=== PATIENT | male | born 1990 | race Native Hawaiian/Other Pacific Islander ===

== ENCOUNTER 2022-08-22 02:22 | Outpatient (CLI) | payer OTHER | END 2022-08-22 23:59 | disposition critical access hospital (66) | LOC: EMS 02:22 | DX: R56.9 Unspecified convulsions (principal); E10.649 Type 1 diabetes mellitus with hypoglycemia without coma | CPT/HCPCS: A0425; A0429 ==

== ENCOUNTER 2022-08-22 02:38 | Emergency (ER) | payer OTHER ==
--- NOTE | 2022-08-22 02:39 | ED Physician Documentation ---
PD HPI SEIZURE - Stated complaint Stated Complaint: SEIZURE - History obtained from History obtained from: Patient, Family (girlfriend) - Additional information Additional information: Patient presents by ambulance. HPI is from EMS, patient, and, later in stay when she arrives, patient's girlfriend. Patient presents for seizure. He has never had seizures before. The patient does not have any recollection of the events; he last recalls going to sleep in bed and feeling well. He denies any heavy/regular alcohol use, does not use any illicit drugs, does not take benzodiazepines. Patient's girlfriend says that she was woken from sleep due to patient making a loud moaning noise and she immediately noted patient was exhibiting full body stiffness, which was quickly followed by rhythmic and coordinated jerking of all 4 extremities. The stiffness and the seizure activity lasted approximately 60 seconds. Subsequently, she says patient was not verbally responding, but appeared to be asleep, very slowly began to respond with opening his eyes, eventually talking although confused. EMS arrived to find patient awake, alert, slightly confused with mental status improving on route to the emergency department. Fingerstick blood sugar was 65 for EMS, he was given some juice and subsequent fingerstick just prior to arrival to the emergency department was 80. Patient's past medical history does include diabetes. Review of Systems Constitutional: denies: Fever Cardiac: reports: Reviewed and negative Respiratory: reports: Reviewed and negative GI: reports: Reviewed and negative Neurologic: reports: Seizure. denies: Generalized weakness, Focal weakness, Numbness, Headache, Head injury PD PAST MEDICAL HISTORY - Past Medical History Past Medical History: Yes Endocrine/Autoimmune: Type 1 diabetes - Allergies Allergies/Adverse Reactions: Allergies Allergy/AdvReac Type Severity Reaction Status Date / Time amoxicillin [From Augmentin] Allergy Unknown Verified 08/22/22 02:47 clavulanic acid Allergy Unknown Verified 08/22/22 02:47 [From Augmentin] PD ED PE NORMAL - Vitals Vital signs reviewed: Yes - General General: Alert and oriented X 3, No acute distress, Well developed/nourished - HEENT HEENT: Atraumatic, PERRL, EOMI, Moist mucous membranes, Other (No tongue bite nor ecchymosis) - Neck Neck: Supple, no meningeal sign - Cardiac Cardiac: RRR, No murmur - Respiratory Respiratory: No respiratory distress, Clear bilaterally - Abdomen Abdomen: Soft, Non tender - Neuro Neuro: Alert and oriented X 3, 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, No motor deficit, No sensory deficit, Normal speech Eye Opening: Spontaneous Motor: Obeys Commands Verbal: Oriented GCS Score: 15 - Psych Psych: Normal mood, Normal affect Results - Vitals Vitals: Vital Signs - 24 hr 08/22/22 08/22/22 08/22/22 02:42 04:46 06:13 Temperature 97.9 C H Heart Rate 112 H 95 90 Respiratory 26 H 16 18 Rate Blood Pressure 163/109 H 146/91 H 152/96 H O2 Saturation 100 99 99 Oxygen O2 Source Room air - Labs Labs: Laboratory Tests 08/22/22 08/22/22 08/22/22 02:41 03:00 03:00 WBC 9.9 RBC 5.71 Hgb 12.7 L Hct 39.5 L MCV 69.2 L MCH 22.2 L MCHC 32.2 RDW 15.4 H Plt Count 309 MPV 8.7 Neut # (Auto) 5.3 Lymph # (Auto) 3.3 [place] # (Auto) 0.7 Eos # (Auto) 0.4 Baso # (Auto) 0.1 Absolute Nucleated RBC 0.00 Nucleated RBC % 0.0 Manual Slide Review Indicated Platelet Estimate NORMAL (130-450,000) RBC Morph Micro Appear 2+ MICROCYTOSIS Sodium 137 Potassium 3.6 Chloride 101 Carbon Dioxide 26 Anion Gap 10.0 BUN 15 Creatinine 0.9 Estimated GFR (MDRD) 98 Glucose 119 H POC Whole Bld Glucose 94 Calcium 8.9 Total Bilirubin 0.6 AST 45 H ALT 34 Alkaline Phosphatase 77 Total Protein 7.0 Albumin 4.0 Globulin 3.0 Albumin/Globulin Ratio 1.3 Lipase 43 TSH 08/22/22 03:00 WBC RBC Hgb Hct MCV MCH MCHC RDW Plt Count MPV Neut # (Auto) Lymph # (Auto) [place] # (Auto) Eos # (Auto) Baso # (Auto) Absolute Nucleated RBC Nucleated RBC % Manual Slide Review Platelet Estimate RBC Morph Micro Appear Sodium Potassium Chloride Carbon Dioxide Anion Gap BUN Creatinine Estimated GFR (MDRD) Glucose POC Whole Bld Glucose Calcium Total Bilirubin AST ALT Alkaline Phosphatase Total Protein Albumin Globulin Albumin/Globulin Ratio Lipase TSH 3.04 - Rads (name of study) CTH Relevant Findings:: Prelim report reviewed, See rad report PD Medical Decision Making - ED course Complexity details: reviewed results, re-evaluated patient, considered differential, d/w patient ED course: There are no concerning or diagnostic findings on tonight's tests. His hemoglobin is just below normal range at 12.7, with low indices noted except for MCHC. His serum blood sugar on the ER abdominal panel was 119. The remainder of his ER abdominal panel is normal except for a trivial elevation in AST (45). Noncontrast CT head is normal. Patient was awake, alert, oriented x3, and asymptomatic throughout his ER stay. I reviewed the results of these test with the patient. The description is highly suggestive of a generalized tonic-clonic seizure. I explained to the patient that he will need neurologic follow-up and likely EEG. I was very clear and explained to patient that he absolutely must refrain from driving until he i s cleared to do so by a neurologist. Other seizure precautions such as avoiding baths and working from heights such as on a roof are to be avoided. Departure - Departure Disposition: 01 Home, Self Care Clinical Impression: Seizure Condition: Good Instructions: ED Seizure New Onset Unk Cause Comments: There were no concerning or diagnostic findings on tonight's test, including the blood tests and the CT scan of your head. The cause of your seizure is not apparent at this time, but that is a very common scenario in the emergency department; most patients to come to the emergency department due to seizure who have not yet been diagnosed with a seizure disorder and not having a clear cause diagnosed in the emergency department. You need to follow-up with a neurologist because you will very likely need to have an EEG performed. Contact your primary care provider's office and/or your insurance provider to inquire as to the referral process. As we discussed, it is very important that you DO NOT DRIVE until you are cl eared to do so by a neurologist or else your primary care provider. If you were to have another seizure while driving, obviously the consequences could be disastrous for you, anyone else in your vehicle, and the occupants of other vehicles on the road. Similarly, other seizure precautions that you need to take include not working from a height (such as a roof work), and not taking baths or swimming alone. If you were to have a seizure while bathing or swimming alone, drowning even in shallow water would be a very real possibility. If you are to have a seizure while working from a height, you would likely fall and could potentially sustain a fatal injury. Discharge Date/Time: 08/22/22 06:13
[2022-08-22 03:05] LABS: BASOPHILS # (AUTO) 0.1 10^3/uL (0.0-0.1); BASOPHILS % (AUTO) 0.9 %; EOSINOPHILS # (AUTO) 0.4 10^3/uL (0.0-0.7); EOSINOPHILS % (AUTO) 4.3 %; HCT - HEMATOCRIT 39.5 % (42.0-52.0); HGB - HEMOGLOBIN 12.7 g/dL (14.0-18.0); LYMPHOCYTES # (AUTO) 3.3 10^3/uL (1.5-3.5); LYMPHOCYTES % (AUTO) 33.2 %; MEAN CORPUSCULAR HEMOGLOBIN 22.2 pg (27.0-31.0); MEAN CORPUSCULAR HGB CONC 32.2 g/dL (32.0-36.0); MEAN CORPUSCULAR VOLUME 69.2 fL (80.0-94.0); MEAN PLATELET VOLUME 8.7 fL (7.4-11.4); MONOCYTES # (AUTO) 0.7 10^3/uL (0.0-1.0); MONOCYTES % (AUTO) 7.5 %; NEUTROPHILS # (AUTO) 5.3 10^3/uL (1.5-6.6); NEUTROPHILS % (AUTO) 53.5 %; PLT - PLATELET COUNT 309 10^3/uL (130-450); RED BLOOD COUNT 5.71 10^6/uL (4.70-6.10); RED CELL DISTRIBUTION WIDTH 15.4 % (12.0-15.0); WHITE BLOOD COUNT 9.9 x10^3/uL (4.8-10.8)
[2022-08-22 03:08] LABS: SLIDE REVIEW? Indicated
[2022-08-22 03:16] LABS: ALBUMIN/GLOBULIN RATIO 1.3 (1.0-2.2); BILIRUBIN,TOTAL 0.6 mg/dL (0.2-1.0); CALCIUM 8.9 mg/dL (8.5-10.3); CREATININE 0.9 mg/dL (0.6-1.2); POTASSIUM 3.6 mmol/L (3.5-5.0)
[2022-08-22 03:25] LABS: PLATELET ESTIMATE, MANUAL NORMAL (130-450,000) (NORMAL); RBC MORPHOLOGY (MULTIPLE) 2+ MICROCYTOSIS (NORMAL)
[2022-08-22 06:16] VITALS: BP 152/96
--- NOTE | 2022-08-22 08:33 | CT Report ---
PROCEDURE: HEAD WO INDICATIONS: seizure TECHNIQUE: Noncontrast 4.5 mm thick angled axial sections acquired from the foramen magnum to the vertex. For r adiation dose reduction, the following was used: automated exposure control, adjustment of mA and/or kV according to patient size. COMPARISON: None. FINDINGS: Image quality: Excellent. CSF spaces: Basal cisterns are patent. No extra-axial fluid collections. Ventricles are normal in size and shape. Brain: No midline shift. No intracranial masses or hemorrhage. Gonzalez-white matter interface is norm al. Skull and face: Calvarium and visualized facial bones are intact, without suspicious lesions. Sinuses: Visualized sinuses and mastoids are clear. IMPRESSION: No acute intracranial abnormality. No significant discrepancy with the preliminary interpretation. Reviewed by: Emigdio Hurtado MD on 08/22/2022 8:32 AM PDT Approved by: Emigdio Hurtado MD on 08/22/2022 8:32 AM PDT Station ID: [id number]
== END 2022-08-22 06:13 | disposition home or self-care (01) ==
LOC: EDUNIT# → ED 02:38
DX: R56.9 Unspecified convulsions (principal); E10.620 Type 1 diabetes mellitus with diabetic dermatitis
CPT/HCPCS: 36415; 80053; 83690; 84443; 85025; 99284